=== PATIENT | female | born 1965 | race African-American/Black ===

== ENCOUNTER 2017-09-09 19:10 | Emergency (ER) | payer SELFPAY ==
[2017-09-09] MEDS ORDERED: FENTANYL CITR 100 MCG/2 ML ONE (20:14)
[2017-09-09] MEDS ORDERED: COLCHICINE 0.6 MG TAB ONE ×2 (20:14→21:56)
[2017-09-09] MEDS ORDERED: ONDANSETRON 4 MG/2 ML VIAL ONE (20:14)
[2017-09-09] MEDS ORDERED: NA CHLORIDE 0.9% 1,000 ML ONE (20:14)
[2017-09-09 20:24] LABS: Protime INR 1.1
[2017-09-09 20:38] LABS: Absolute Monocytes 0.5 K/uL (0.1-1.3); Absolute Neutrophil 9.7 K/uL (1.8-8.0); Basophils % 0.6 % (0-1.3); Eosinophils % 0.9 % (0-4.4); Hematocrit 35.4 % (36.0-45.0); Lymphocytes % 22.6 % (15.3-44.8); MCH 29.9 pg (27.0-35.0); MCV 89.5 fL (80-100); MPV 9.6 fL (7.6-11.3); Monocytes % 3.7 % (3.3-12.3); RBC Red Blood Cell Count 3.96 M/uL (3.86-4.86)
[2017-09-09 20:51] LABS: Albumin 4.1 g/dL (3.2-5.5); Bilirubin Direct 0.1 mg/dL (0-0.2); Bilirubin Total 0.3 mg/dL (0.3-1.2); Magnesium 1.8 mg/dL (1.8-2.5); Protein, Total 7.2 g/dL (6.0-8.3); Uric Acid 8.2 mg/dL (2.6-8.0)
[2017-09-09 20:56] LABS: CKMB Creatine Kinase MB 0.8 ng/ml (0.3-4.0)
[2017-09-09] MEDS ORDERED: HYDRALAZINE HCL 20 MG/ML VIAL ONE (21:01)
[2017-09-09] MEDS ORDERED: HYDRALAZINE HCL 10 MG TABLET ONE (21:02)
--- NOTE | 2017-09-09 21:17 | EDPHYS ---
Physician Documentation [facility] Name: Ana Davila Age: 52 yrs Sex: Female : 1965 Arrival Date: 09/09/2017 Time: 19:14 Bed 8 Private MD: Thelma Lovelace R ED Physician Doug Kramer HPI: 09/09 19:57 This 52 yrs old Black Female presents to ER via Ambulatory with complaints of Foot ta Pain, Feet Swelling. 19:57 The patient presents with decreased range of motion, pain, swelling, tenderness. The ta complaints affect the left foot. Context: The problem was sustained at an unknown location. Onset: The symptoms/episode began/occurred 60 day(s) ago. Modifying factors: The symptoms are alleviated by elevation of extremity, the symptoms are aggravated by weight bearing, movement, wearing shoes. Associated signs and symptoms: The patient has no apparent associated signs or symptoms. Severity of symptoms: At their worst the symptoms were mild, moderate, in the emergency department the symptoms are unchanged. The patient has not experienced similar symptoms in the past. 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 - Social history:: Smoking status: Patient/guardian denies using tobacco, Patient/guardian denies using alcohol, street drugs. - Ebola Screening: : No symptoms or risks identified at this time. - Family history:: not pertinent. ROS: 19:57 Constitutional: Negative for fever, chills, and weight loss, Eyes: Negative for injury, ta pain, redness, and discharge, ENT: Negative for injury, pain, and discharge, Neck: Negative for injury, pain, and swelling, Cardiovascular: Negative for chest pain, palpitations, and edema, Respiratory: Negative for shortness of breath, cough, wheezing, and pleuritic chest pain, Abdomen/GI: Negative for abdominal pain, nausea, vomiting, diarrhea, and constipation, Back: Negative for injury and pain, : Negative for injury, bleeding, discharge, and swelling, Skin: Negative for injury, rash, and discoloration, Neuro: Negative for headache, weakness, numbness, tingling, and seizure, Psych: Negative for depression, anxiety, suicide ideation, homicidal ideation, and hallucinations, Allergy/Immunology: Negative for hives, rash, and allergies, Endocrine: Negative for neck swelling, polydipsia, polyuria, polyphagia, and marked weight changes, Hematologic/Lymphatic: Negative for swollen nodes, abnormal bleeding, and unusual bruising. 19:57 MS/extremity: Positive for decreased range of motion, pain, swelling, tenderness, of the left foot. Exam: 19:57 Constitutional: This is a well developed, well nourished patient who is awake, alert, ta and in no acute distress. Head/Face: Normocephalic, atraumatic. Eyes: Pupils equal round and reactive to light, extra-ocular motions intact. Lids and lashes normal. Conjunctiva and sclera are non-icteric and not injected. Cornea within normal limits. Periorbital areas with no swelling, redness, or edema. ENT: Nares patent. No nasal discharge, no septal abnormalities noted. Tympanic membranes are normal and external auditory canals are clear. Oropharynx with no redness, swelling, or masses, exudates, or evidence of obstruction, uvula midline. Mucous membranes moist. Neck: Trachea midline, no thyromegaly or masses palpated, and no cervical lymphadenopathy. Supple, full range of motion without nuchal rigidity, or vertebral point tenderness. No Meningismus. Chest/axilla: Normal chest wall appearance and motion. Nontender with no deformity. No lesions are appreciated. Respiratory: Lungs have equal breath sounds bilaterally, clear to auscultation and percussion. No rales, rhonchi or wheezes noted. No increased work of breathing, no retractions or nasal flaring. Abdomen/GI: Soft, non-tender, with normal bowel sounds. No distension or tympany. No guarding or rebound. No evidence of tenderness throughout. Back: No spinal tenderness. No costovertebral tenderness. Full range of motion. 19:57 Cardiovascular: Rate: tachycardic, Rhythm: regular, Heart sounds: normal, Edema: is not appreciated, JVD: is not appreciated. 19:57 Musculoskeletal/extremity: ROM: full active range of motion, full passive range of motion, Pulses: noted to be 4+ in the bilateral radial, brachial, femoral, popliteal, posterior tibial and and dorsalis pedis arteries., Sensation intact. Compartment Syndrome exam of affected extremity: is normal. DVT Exam: negative Homans' sign noted on exam, no appreciated bluish discoloration, no erythema, no increased warmth, pain, swelling, tenderness. Vital Signs: 19:30 BP 212 / 108; Pulse 121; Resp 18 S; Temp 98.8(O); Pulse Ox 99% on R/A; Weight 61.69 kg bb (R); Height 5 ft. 0 in. (152.40 cm) (R); Pain 7/10; 20:08 BP 193 / 97; Pulse 100; Resp 18; Pulse Ox 98% on R/A; tl2 21:03 BP 206 / 109; Pulse 97; Resp 18; Pulse Ox 99% on R/A; tl2 21:48 BP 198 / 95; Pulse 114; Resp 20; Pulse Ox 98% on R/A; rv 22:40 BP 184 / 98; Pulse 96; Resp 18; Pulse Ox 99% on R/A; Pain 2/10; tl2 19:30 Body Mass Index 26.56 (61.69 kg, 152.40 cm) bb MDM: 19:24 Patient medically screened. [facility] 20:01 Data reviewed: vital signs, nurses notes, lab test result(s), EKG, radiologic studies, [facility] plain films, ultrasound. 09/09 19:56 Order name: Basic Metabolic Panel [facility] 09/09 19:56 Order name: BNP; Complete Time: 21:12 [facility] 09/09 19:56 Order name: CBC with Diff; Complete Time: 21:12 [facility] 09/09 19:56 Order name: Ckmb; Complete Time: 21:12 [facility] 09/09 19:56 Order name: CPK; Complete Time: 21:12 [facility] 09/09 19:56 Order name: LFT's; Complete Time: 21:12 [facility] 09/09 19:56 Order name: Magnesium; Complete Time: 21:12 [facility] 09/09 19:56 Order name: PT-INR; Complete Time: 21:12 [facility] 09/09 19:56 Order name: Ptt, Activated; Complete Time: 21:12 [facility] 09/09 19:56 Order name: Troponin (emerg Dept Use Only); Complete Time: 21:12 [facility] 09/09 19:56 Order name: XRAY Chest (1 view) [facility] 09/09 19:56 Order name: Foot Left 3 View XRAY [facility] 09/09 19:56 Order name: Uric Acid; Complete Time: 21:12 [facility] 09/09 19:56 Order name: Basic Metabolic Panel; Complete Time: 21:12 [facility] 09/09 19:56 Order name: EKG; Complete Time: 19:57 [facility] 09/09 19:56 Order name: Cardiac monitoring; Complete Time: 20:07 [facility] 09/09 19:56 Order name: EKG - Nurse/Tech; Complete Time: 20:07 [facility] 09/09 19:56 Order name: IV Saline Lock; Complete Time: 20:07 [facility] 09/09 19:56 Order name: Labs collected and sent; Complete Time: 20:07 [facility] 09/09 19:56 Order name: US Extremity Venous W Compression Yaya [facility] 09/09 19:56 Order name: O2 Per Protocol; Complete Time: 20:08 [facility] 09/09 19:56 Order name: O2 Sat Monitoring; Complete Time: 20:08 [facility] 09/09 19:56 Order name: Urine Dipstick-Ancillary (obtain specimen); Complete Time: 22:22 [facility] Administered Medications: 20:18 Drug: NS 0.9% 1000 ml Route: IV; Rate: 125 ml/hr; Site: right wrist; tl2 22:43 Follow up: IV Status: Completed infusion tl2 20:18 Drug: Colcrys 1.2 mg Route: PO; tl2 22:39 Follow up: Response: No adverse reaction tl2 20:18 Drug: fentaNYL (PF) 25 mcg Route: IVP; Site: right wrist; tl2 21:00 Follow up: Response: No adverse reaction; Pain is decreased tl2 20:18 Drug: Zofran 4 mg Route: IVP; Site: right wrist; tl2 22:39 Follow up: Response: No adverse reaction tl2 21:04 Drug: hydrALAZINE 10 mg Route: IV; Rate: per protocol; Site: right wrist; tl2 22:43 Follow up: IV Status: Completed infusion tl2 21:04 Drug: hydrALAZINE 10 mg Route: PO; tl2 22:39 Follow up: Response: No adverse reaction; Blood pressure is lowered tl2 22:03 Drug: Potassium Effervescent Tablet 50 mEq Route: PO; bp 22:39 Follow up: Response: No adverse reaction tl2 22:03 Drug: Colcrys 0.6 mg Route: PO; bp 22:40 Follow up: Response: No adverse reaction tl2 22:03 Drug: Lopressor (metoprolol TARTRATE) 50 mg Route: PO; bp 22:40 Follow up: Response: No adverse reaction tl2 22:03 Drug: Norvasc 5 mg Route: PO; bp 22:40 Follow up: Response: No adverse reaction tl2 Disposition: 09/09/17 21:16 Discharged to Home. Impression: Gout, Hypokalemia, Essential (primary) hypertension. - Condition is Fair. - Discharge Instructions: Potassium Content of Foods, Gout, Hypertension, Hypertension, [id number], Gout, Xqca-[id number]-Pwwp, How to Take Your Blood Pressure, Xlid-yx-Dodn, Managing Your High Blood Pressure. - Prescriptions for indomethacin 25 mg Oral capsule - take 1 capsule by ORAL route 4 times per day for 14 days; 20 capsule. Norvasc 10 mg Oral Tablet - take 1 tablet by ORAL route once daily; 30 tablet. Atenolol 50 mg Oral Tablet - take 1 tablet by ORAL route once daily; 30 tablet. Hydralazine 10 mg Oral Tablet - take 1 tablet by ORAL route 3 times per day with food; 30 tablet. - Medication Reconciliation Form, Thank You Letter, Antibiotic Education, Prescription Opioid Use form. - Follow up: Thelma Lovelace MD; When: 2 - 3 days; Reason: Recheck today's complaints, Continuance of care, Re-evaluation by your physician. Follow up: Chinmay Pride MD; When: 2 - 3 days; Reason: Recheck today's complaints, Re-evaluation by your physician. - Problem is new. - Symptoms have improved. Signatures: Dispatcher [employer] Doug Samano MD MD cha Ballard, Brenda, RN RN Lori Urbano RN RN tl2 Almas Araujo RN RN bp Corrections: (The following items were deleted from the chart) 22:43 21:16 09/09/2017 21:16 Discharged to Home. Impression: Gout; Hypokalemia; Essential tl2 (primary) hypertension. Condition is Fair. Forms are Medication Reconciliation Form, Thank You Letter, Antibiotic Education, Prescription Opioid Use. Follow up: Thelma Lovelace; When: 2 - 3 days; Reason: Recheck today's complaints, Continuance of care, Re-evaluation by your physician. Follow up: Chinmay Pride; When: 2 - 3 days; Reason: Recheck today's complaints, Re-evaluation by your physician. Problem is new. Symptoms have improved. ta
--- NOTE | 2017-09-09 21:17 | ER ---
Nurse's Notes [facility] Name: Ana Davila Age: 52 yrs Sex: Female : 1965 Arrival Date: 09/09/2017 Time: 19:14 Bed 8 Private MD: Thelma Lovelace R Diagnosis: Gout;Hypokalemia;Essential (primary) hypertension Presentation: 09/09 19:27 Presenting complaint: Patient states: she has had an episode approx 2 months ago of her bb left foot swelling which lasted approx 3 to 4 days then it went away but now it has started swelling again since and it is painful. Pt was concerned as her 28 year old daughter from a blood clot. Transition of care: patient was not received from another setting of care. Onset of symptoms was September 07, 2017. Risk Assessment: Do you want to hurt yourself or someone else? Patient reports no desire to harm self or others. Initial Sepsis Screen: Does the patient meet any 2 criteria? No. Patient's initial sepsis screen is negative. Does the patient have a suspected source of infection? No. Patient's initial sepsis screen is negative. Care prior to arrival: None. 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 - Social history:: Smoking status: Patient/guardian denies using tobacco, Patient/guardian denies using alcohol, street drugs. - Ebola Screening: : No symptoms or risks identified at this time. - Family history:: not pertinent. Screenin:45 Abuse screen: Denies threats or abuse. Nutritional screening: No deficits noted. tl2 Tuberculosis screening: No symptoms or risk factors identified. Fall Risk None identified. Assessment: 19:45 General: Appears in no apparent distress. uncomfortable, Behavior is calm, cooperative, tl2 appropriate for age. Pain: Complains of pain in left foot Pain does not radiate. Neuro: Level of Consciousness is awake, alert, obeys commands, Oriented to person, place, time, situation. Cardiovascular: Denies chest pain. Cardiovascular: Pulses are palpable in right dorsalis pedis artery and left dorsalis pedis artery. Respiratory: Airway is patent Respiratory effort is even, unlabored, Respiratory pattern is regular, symmetrical. GI: No signs and/or symptoms were reported involving the gastrointestinal system. : No signs and/or symptoms were reported regarding the genitourinary system. Derm: Skin is pink, warm \T\ dry. Musculoskeletal: Circulation, motion, and sensation intact. Swelling present in dorsum of left foot. 21:03 Reassessment: Patient appears in no apparent distress at this time. Patient and/or tl2 family updated on plan of care and expected duration. Pain level reassessed. Patient is alert, oriented x 3, equal unlabored respirations, skin warm/dry/pink. Pt states pain medication has helped. BP continues to trend up, notified, new order see MAR Patient states feeling better. 22:22 Reassessment: will continue to monitor BP and pulse before discharge. tl2 Vital Signs: 19:30 BP 212 / 108; Pulse 121; Resp 18 S; Temp 98.8(O); Pulse Ox 99% on R/A; Weight 61.69 kg bb (R); Height 5 ft. 0 in. (152.40 cm) (R); Pain 7/10; 20:08 BP 193 / 97; Pulse 100; Resp 18; Pulse Ox 98% on R/A; tl2 21:03 BP 206 / 109; Pulse 97; Resp 18; Pulse Ox 99% on R/A; tl2 21:48 BP 198 / 95; Pulse 114; Resp 20; Pulse Ox 98% on R/A; rv 22:40 BP 184 / 98; Pulse 96; Resp 18; Pulse Ox 99% on R/A; Pain 2/10; tl2 19:30 Body Mass Index 26.56 (61.69 kg, 152.40 cm) ED Course: 19:14 Patient arrived in ED. es 19:14 Thelma Lovelace MD is Private Physician. es 19:23 Doug Kramer MD is Attending Physician. ta 19:29 Triage completed. bb 19:30 Arm band placed on left wrist. Patient placed in an exam room, on a stretcher, on pulse bb oximetry. 19:45 Patient has correct armband on for positive identification. Bed in low position. Call tl2 light in reach. Side rails up X 1. 20:07 Lori Burris, RN is Primary Nurse. tl2 20:08 Inserted saline lock: 22 gauge in right wrist, using aseptic technique. Blood collected.tl2 20:39 Ultrasound completed. Patient tolerated well. sg3 20:54 US Extremity Venous W Compression Yaya In Process Unspecified. EDMS 21:08 X-ray completed. Portable x-ray completed in exam room. Patient tolerated procedure la2 well. 21:12 XRAY Chest (1 view) In Process Unspecified. EDMS 21:12 Foot Left 3 View XRAY In Process Unspecified. EDMS 21:15 Thelma Lovelace MD is Referral Physician. ta 21:15 Chinmay Pride MD is Referral Physician. ta 22:40 No provider procedures requiring assistance completed. IV discontinued, intact, tl2 bleeding controlled, No redness/swelling at site. Pressure dressing applied. Administered Medications: 20:18 Drug: NS 0.9% 1000 ml Route: IV; Rate: 125 ml/hr; Site: right wrist; tl2 22:43 Follow up: IV Status: Completed infusion tl2 20:18 Drug: Colcrys 1.2 mg Route: PO; tl2 22:39 Follow up: Response: No adverse reaction tl2 20:18 Drug: fentaNYL (PF) 25 mcg Route: IVP; Site: right wrist; tl2 21:00 Follow up: Response: No adverse reaction; Pain is decreased tl2 20:18 Drug: Zofran 4 mg Route: IVP; Site: right wrist; tl2 22:39 Follow up: Response: No adverse reaction tl2 21:04 Drug: hydrALAZINE 10 mg Route: IV; Rate: per protocol; Site: right wrist; tl2 22:43 Follow up: IV Status: Completed infusion tl2 21:04 Drug: hydrALAZINE 10 mg Route: PO; tl2 22:39 Follow up: Response: No adverse reaction; Blood pressure is lowered tl2 22:03 Drug: Potassium Effervescent Tablet 50 mEq Route: PO; bp 22:39 Follow up: Response: No adverse reaction tl2 22:03 Drug: Colcrys 0.6 mg Route: PO; bp 22:40 Follow up: Response: No adverse reaction tl2 22:03 Drug: Lopressor (metoprolol TARTRATE) 50 mg Route: PO; bp 22:40 Follow up: Response: No adverse reaction tl2 22:03 Drug: Norvasc 5 mg Route: PO; bp 22:40 Follow up: Response: No adverse reaction tl2 Outcome: 21:16 Discharge ordered by . ta 22:40 Discharged to home ambulatory, with family. tl2 22:40 Condition: stable 22:40 Discharge instructions given to patient, Instructed on discharge instructions, follow up and referral plans. medication usage, Demonstrated understanding of instructions, follow-up care, medications, Prescriptions given X 4. 22:43 Patient left the ED. tl2 Signatures: Dispatcher [employer] Doug Samano MD MD cha Salyer, Edna es Ballard, Brenda RN RN Lori Urbano RN RN tl2 Zhane Crespo la2 Almas Araujo RN RN Carla Chavez sg3 Prasad Alcala RN RN rv Corrections: (The following items were deleted from the chart) 19:32 19:27 Acuity: BRENNAN 3 mono villareal
--- NOTE | 2017-09-09 21:23 | RAD REPORT ---
EXAM DESCRIPTION: VASExtrem Venous W Compress Bil09/09/2017 8:54 pm CLINICAL HISTORY: Bilateral leg swelling COMPARISON: none FINDINGS: The common femoral, superficial femoral, popliteal and posterior tibial veins bilaterally are compressible and demonstrate augmentation. Doppler demonstrates good flow. IMPRESSION: No evidence of deep venous thrombosis involving either lower extremity.
--- NOTE | 2017-09-09 21:24 | RAD REPORT ---
EXAM DESCRIPTION: Anna Single View09/09/2017 9:11 pm CLINICAL HISTORY: sob COMPARISON: none FINDINGS: The lungs appear clear of acute infiltrate. The heart is normal size IMPRESSION: No acute abnormalities displayed
--- NOTE | 2017-09-09 21:26 | RAD REPORT ---
EXAM DESCRIPTION: RAD - Foot Left 3 View - 09/09/2017 9:11 pm CLINICAL HISTORY: Left Foot pain FINDINGS: No fracture or dislocation is seen. A large spur extends off the posterior calcaneus
[2017-09-09] MEDS ORDERED: AMLODIPINE 5 MG TAB ONE (21:55)
[2017-09-09] MEDS ORDERED: METOPROLOL TAR 50 MG TAB ONE (21:55)
[2017-09-09] MEDS ORDERED: POTASSIUM 25 MEQ EFFERV TAB ONE (21:56)
[2017-09-09] MEDS ORDERED: KETOROLAC 30 MG/ML INJ ONE (22:35)
--- NOTE | 2017-09-10 06:40 | EKG ---
Test Date: 2017-09-09 Test Time: 20:05:12 Jail Officer: MEASUREMENT RESULTS: Intervals: Rate: 107 SC: 136 QRSD: 68 QT: 360 QTc: 480 [place]: P: 49 SC: 136 QRS: 11 T: 102 INTERPRETIVE STATEMENTS: Sinus tachycardia Nonspecific T wave abnormality Abnormal ECG No previous ECG available for comparison Electronically Signed On 09-10-17 06:39:32 CDT by Yann Chavarria
== END 2017-09-09 22:43 | disposition home or self-care (01) ==
LOC: ER 19:10
DX: M10.9 Gout, unspecified (principal); E87.6 Hypokalemia; I10 Essential (primary) hypertension
CPT/HCPCS: 36415; 71045; 80048; 80076; 82550; 82553; 83735; 83880; 84484; 84550; 85025; 85610; 85730; 93005; 93970; 96361; 96365; 96366; 96375; 99284; J0360; J2405; J3010; J7030

== ENCOUNTER 2017-12-09 22:48 | Emergency (ER) | payer SELFPAY ==
[2017-12-10] MEDS ORDERED: HYDROCODONE/APAP 10/325 TAB ONE (00:06)
--- NOTE | 2017-12-10 01:00 | EDPHYS ---
Physician Documentation [facility] Name: Ana Davila Age: 52 yrs Sex: Female : 1965 Arrival Date: 12/09/2017 Time: 22:49 Bed 6 Private MD: Thelma Lovelace R ED Physician Alexey Macias HPI: 12/10 01:00 This 52 yrs old Black Female presents to ER via Ambulatory with complaints of Right Arm pm1 Pain. 01:00 The patient or guardian complains of pain. The complaints affect the right elbow. pm1 Context: The problem was sustained outdoors, resulted from slipped on water getting out of car and landed on right elbow. Onset: The symptoms/episode began/occurred 2 day(s) ago. Treatment prior to arrival includes: no previous treatment. Modifying factors: The symptoms are alleviated by remaining still, the symptoms are aggravated by bending arm. Associated signs and symptoms: Pertinent negatives: deformity, numbness, tingling. Severity of symptoms: in the emergency department the symptoms are unchanged. The patient has not experienced similar symptoms in the past. The patient has not recently seen a physician. No head injury, headache, neck pain, LOC. 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 - Social history:: Smoking status: Patient/guardian denies using tobacco. - Ebola Screening: : No symptoms or risks identified at this time. ROS: 12/10 01:00 Constitutional: Negative for fever, chills, and weight loss, Eyes: Negative for injury, pm1 pain, redness, and discharge, ENT: Negative for injury, pain, and discharge, Neck: Negative for injury, pain, and swelling, Cardiovascular: Negative for chest pain, palpitations, and edema, Respiratory: Negative for shortness of breath, cough, wheezing, and pleuritic chest pain, Abdomen/GI: Negative for abdominal pain, nausea, vomiting, diarrhea, and constipation, Back: Negative for injury and pain. Skin: Negative for injury, rash, and discoloration, Neuro: Negative for headache, weakness, numbness, tingling, and seizure. MS/extremity: Positive for pain, of the right elbow. Exam: 01:00 Constitutional: This is a well developed, well nourished patient who is awake, alert, pm1 and in no acute distress. Head/Face: Normocephalic, atraumatic. Eyes: Pupils equal round and reactive to light, extra-ocular motions intact. Lids and lashes normal. Conjunctiva and sclera are non-icteric and not injected. Cornea within normal limits. Periorbital areas with no swelling, redness, or edema. ENT: Nares patent. No nasal discharge, no septal abnormalities noted. Tympanic membranes are normal and external auditory canals are clear. Oropharynx with no redness, swelling, or masses, exudates, or evidence of obstruction, uvula midline. Mucous membranes moist. Neck: Trachea midline, no thyromegaly or masses palpated, and no cervical lymphadenopathy. Supple, full range of motion without nuchal rigidity, or vertebral point tenderness. No Meningismus. Chest/axilla: Normal chest wall appearance and motion. Nontender with no deformity. No lesions are appreciated. Cardiovascular: Regular rate and rhythm with a normal S1 and S2. No gallops, murmurs, or rubs. Normal PMI, no JVD. No pulse deficits. Respiratory: Lungs have equal breath sounds bilaterally, clear to auscultation and percussion. No rales, rhonchi or wheezes noted. No increased work of breathing, no retractions or nasal flaring. Abdomen/GI: Soft, non-tender, with normal bowel sounds. No distension or tympany. No guarding or rebound. No evidence of tenderness throughout. Back: No spinal tenderness. No costovertebral tenderness. Full range of motion. Skin: Warm, dry with normal turgor. Normal color with no rashes, no lesions, and no evidence of cellulitis. 01:00 Musculoskeletal/extremity: Extremities: grossly normal except: noted in the right elbow: pain, tenderness, Patient able to pronate and supinate right hand. Pain with flexion at elbow. 01:00 Neuro: Orientation: is normal, Motor: moves all fours, Sensation: is normal, no obvious gross deficits, Gait: is steady, at a normal pace, without difficulty. Vital Signs: 12/09 23:16 BP 218 / 116; Pulse 113; Resp 18; Temp 98.6; Pulse Ox 99% on R/A; Weight 63.5 kg; aa1 Height 5 ft. 0 in. (152.40 cm); Pain 8/10; 12/10 00:04 BP 191 / 108; Pulse 94; Resp 18; Pulse Ox 98% on R/A; aa1 00:49 BP 200 / 100; Pulse 96; Resp 18; Pulse Ox 97% on R/A; aa1 01:33 BP 190 / 103; Pulse 93; Resp 16; Pulse Ox 98% on R/A; Pain 5/10; aa1 12/09 23:16 Body Mass Index 27.34 (63.50 kg, 152.40 cm) aa1 Procedures: 01:29 Splinting: Splint applied to right elbow using Orthoglass splint, applied by tech. pm1 Examined by me, post splint application: neurovascular intact, 2+ distal pulses palpable, brisk capillary refill noted, Patient tolerated well. MDM: 12/09 23:19 Patient medically screened. pm1 12/10 00:49 Data reviewed: vital signs. Data interpreted: Pulse oximetry: on room air is 97 %. pm1 Interpretation: normal. Counseling: I had a detailed discussion with the patient and/or guardian regarding: the historical points, exam findings, and any diagnostic results supporting the discharge/admit diagnosis, radiology results, the need for outpatient follow up, for definitive care, a orthopedic surgeon, to return to the emergency department if symptoms worsen or persist or if there are any questions or concerns that arise at home. 12/09 23:53 Order name: Elbow Right 3 View XRAY; Complete Time: 20:58 pm1 12/10 01:02 Order name: Sling; Complete Time: 01:33 pm1 12/10 01:02 Order name: Splint - Elbow - Posterior; Complete Time: 01:33 pm1 Administered Medications: 00:02 Drug: [place] 10 mg-325 mg 1 tabs Route: PO; aa1 01:33 Follow up: Response: No adverse reaction; Pain is decreased aa1 Disposition: 12/10/17 01:00 Discharged to Home. Impression: Fracture right ulna . - Condition is Stable. - Discharge Instructions: Cast or Splint Care, Adult, Ulnar Fracture, How to Use a Sling. - Prescriptions for Tylenol- Codeine #3 300-30 mg Oral Tablet - take 2 tablets by ORAL route every 6 hours As needed; 20 tablet. - Medication Reconciliation Form, Thank You Letter, Prescription Opioid Use form. - Follow up: Emergency Department; When: As needed; Reason: Worsening of condition. Follow up: Jean-Paul Crews MD; When: 2 - 3 days; Reason: Recheck today's complaints, Continuance of care, Re-evaluation by your physician. - Problem is new. - Symptoms have improved. Addendum: 12/11/2017 03:03 Co-signature as Attending Physician, Alexey Macias MD. g s Signatures: Dispatcher [employer] EDMS Soheila Vital RN RN aa1 Sebastian Hart, HEALTH INFORMATION TECHNICIAN HEALTH INFORMATION TECHNICIAN pm1 Alexey Macias MD MD Corrections: (The following items were deleted from the chart) 12/10 01:37 01:00 12/10/2017 01:00 Discharged to Home. Impression: Fracture right ulna . Condition aa1 is Stable. Forms are Medication Reconciliation Form, Thank You Letter, Antibiotic Education, Prescription Opioid Use. Follow up: Emergency Department; When: As needed; Reason: Worsening of condition. Follow up: Jean-Paul Crews; When: 2 - 3 days; Reason: Recheck today's complaints, Continuance of care, Re-evaluation by your physician. Problem is new. Symptoms have improved. pm1
--- NOTE | 2017-12-10 01:00 | ER ---
Nurse's Notes [facility] Name: Ana Davila Age: 52 yrs Sex: Female : 1965 Arrival Date: 12/09/2017 Time: 22:49 Bed 6 Private MD: Thelma Lovelace R Diagnosis: Fracture right ulna Presentation: 12/09 23:07 Presenting complaint: Patient states: she slipped in a puddle of water last night and aa1 landed on her R elbow. Small laceration noted with scab present. Reports pain with ROM of R elbow. Transition of care: patient was not received from another setting of care. Onset of symptoms was December 08, 2017. Risk Assessment: Do you want to hurt yourself or someone else? Patient reports no desire to harm self or others. Initial Sepsis Screen: Does the patient meet any 2 criteria? No. Patient's initial sepsis screen is negative. Does the patient have a suspected source of infection? No. Patient's initial sepsis screen is negative. Care prior to arrival: None. 23:07 Method Of Arrival: Ambulatory aa1 23:07 Acuity: BRENNAN [address]: 23:16 LMP N/A - Hysterectomy aa1 Historical: - Allergies: 23:16 No Known Allergies; aa1 - Home Meds: 23:16 amlodipine 5 mg tab 1 tab once daily [Active]; atenolol 50 mg Oral tab 1 tab once daily aa1 [Active]; hydrochlorothiazide 25 mg Oral tab 1 tab once daily [Active]; - PMHx: 23:16 Hypertension; aa1 - PSHx: 23:16 Hysterectomy; Appendectomy; aa1 - Immunization history:: Last tetanus immunization: unknown. - Social history:: Smoking status: Patient/guardian denies using tobacco. - Ebola Screening: : No symptoms or risks identified at this time. Screenin:17 Abuse screen: Denies threats or abuse. Denies injuries from another. Nutritional aa1 screening: No deficits noted. Tuberculosis screening: No symptoms or risk factors identified. Fall Risk None identified. Assessment: 23:17 General: Appears in no apparent distress. comfortable, Behavior is calm, cooperative, aa1 appropriate for age. Pain: Complains of pain in right antecubital area. Neuro: Level of Consciousness is awake, alert, obeys commands, Oriented to person, place, time, situation. Respiratory: Airway is patent Respiratory effort is even, unlabored, Respiratory pattern is regular, symmetrical. GI: No signs and/or symptoms were reported involving the gastrointestinal system. : No signs and/or symptoms were reported regarding the genitourinary system. EENT: No signs and/or symptoms were reported regarding the EENT system. Derm: Skin is intact, is healthy with good turgor, Skin is pink, warm \T\ dry. Musculoskeletal: Circulation, motion, and sensation intact. Capillary refill < 3 seconds, Range of motion: limited in right elbow. Injury Description: Abrasion sustained to right elbow is scabbed, was sustained 12-24 hours ago. 12/10 00:05 Reassessment: Patient appears in no apparent distress at this time. Patient and/or aa1 family updated on plan of care and expected duration. Pain level reassessed. Patient is alert, oriented x 3, equal unlabored respirations, skin warm/dry/pink. Awaiting x-ray. 00:48 Reassessment: Patient appears in no apparent distress at this time. Patient and/or aa1 family updated on plan of care and expected duration. Pain level reassessed. Patient is alert, oriented x 3, equal unlabored respirations, skin warm/dry/pink. Awaiting x-ray results. 01:33 Reassessment: Patient appears in no apparent distress at this time. Patient is alert, aa1 oriented x 3, equal unlabored respirations, skin warm/dry/pink. Discussed d/c \T\ f/u instructions with pt \T\ daughter; denies questions or concerns at this time Patient states feeling better. Vital Signs: 12/09 23:16 BP 218 / 116; Pulse 113; Resp 18; Temp 98.6; Pulse Ox 99% on R/A; Weight 63.5 kg; aa1 Height 5 ft. 0 in. (152.40 cm); Pain 8/10; 12/10 00:04 BP 191 / 108; Pulse 94; Resp 18; Pulse Ox 98% on R/A; aa1 00:49 BP 200 / 100; Pulse 96; Resp 18; Pulse Ox 97% on R/A; aa1 01:33 BP 190 / 103; Pulse 93; Resp 16; Pulse Ox 98% on R/A; Pain 5/10; aa1 09/15 23:16 Body Mass Index 27.34 (63.50 kg, 152.40 cm) aa1 ED Course: 12/09 22:49 Patient arrived in ED. ds1 22:52 Thelma Lovelace MD is Private Physician. ds1 23:13 Triage completed. aa1 23:16 Arm band placed on right wrist. Patient placed in an exam room, on a stretcher. aa1 23:17 Patient has correct armband on for positive identification. Bed in low position. Call aa1 light in reach. Pulse ox on. NIBP on. 23:19 Sebastian Hart NP is PHCP. pm1 23:19 Alexey Macias MD is Attending Physician. pm1 09 00:01 Soheila Vital RN is Primary Nurse. aa1 00:30 Elbow Right 3 View XRAY In Process Unspecified. EDMS 00:46 X-ray completed. Patient tolerated procedure well. mh1 00:53 Jean-Paul Crews MD is Referral Physician. pm1 01:36 No provider procedures requiring assistance completed. Patient did not have IV access aa1 during this emergency room visit. Administered Medications: 00:02 Drug: [place] 10 mg-325 mg 1 tabs Route: PO; aa1 01:33 Follow up: Response: No adverse reaction; Pain is decreased aa1 Outcome: 01:00 Discharge ordered by . pm1 01:36 Discharged to home ambulatory, with family. aa1 01:36 Condition: good 01:36 Discharge instructions given to patient, family, Instructed on discharge instructions, follow up and referral plans. medication usage, Demonstrated understanding of instructions, follow-up care, medications, splint care, Prescriptions given X 1. 01:37 Patient left the ED. aa1 Signatures: Dispatcher [employer] EDAR Soheila Vital RN RN aa1 Samreen Dubois 1 Chanelle Cotton ds1 Sebastian Hart NP MACHINE I TRIMMER pm1
--- NOTE | 2017-12-10 08:25 | RAD REPORT ---
EXAM DESCRIPTION: RAD - Elbow Right 3 View - 12/10/2017 12:30 am CLINICAL HISTORY: Slip and fall, trauma to right elbow, laceration COMPARISON: None. FINDINGS: No fracture is identified and no elevated posterior fat pad. There is no dislocation or pe riosteal reaction noted. No foreign body is seen. There is soft tissue swelling posterior to the elbo w. . No other significant finding. IMPRESSION: No fracture or acute finding seen. Posterior soft tissue swelling is present. Repeat plain films in 7 days or MR imaging could be utilized if the patient has continued symptoms co ncerning for occult bony injury.
== END 2017-12-10 01:37 | disposition home or self-care (01) ==
LOC: ER 22:48
PROC: 2W38X1Z Immobilization of Right Upper Extremity using Splint (ICD-10-PCS; principal; 2017-12-10)
DX: S52.201A Unspecified fracture of shaft of right ulna, initial encounter for closed fracture (principal); W01.0XXA Fall on same level from slipping, tripping and stumbling without subsequent striking against object, initial encounter; Y93.89 Activity, other specified; Y92.9 Unspecified place or not applicable; I10 Essential (primary) hypertension
CPT/HCPCS: 99284

== ENCOUNTER 2018-10-21 23:32 | Emergency (ER) | payer SELFPAY ==
--- NOTE | 2018-10-22 00:11 | ER ---
Nurse's Notes [facility] Name: Ana Davila Age: 53 yrs Sex: Female : 1965 Arrival Date: 10/21/2018 Time: 23:37 Bed 13 Private MD: Thelma Lovelace R Diagnosis: Dermatitis, unspecified Presentation: 10/21 23:44 Presenting complaint: Patient states: I have a rash on both my arms, lower back and jb4 lower abdomen, and inner thighs. I think its my eczema but my cream has not worked at all. 23:44 Transition of care: patient was not received from another setting of care. Onset: The jb4 symptoms/episode began/occurred 1 week(s) ago. Anaphylaxis evaluation, no signs or symptoms of anaphylaxis were noted. Onset of symptoms was October 14, 2018. Risk Assessment: Do you want to hurt yourself or someone else? Patient reports no desire to harm self or others. Initial Sepsis Screen: Does the patient meet any 2 criteria? No. Patient's initial sepsis screen is negative. Does the patient have a suspected source of infection? No. Patient's initial sepsis screen is negative. Care prior to arrival: None. 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 - Social history:: Smoking status: Patient/guardian denies using tobacco, Patient/guardian denies using alcohol. - Ebola Screening: : No symptoms or risks identified at this time. Screenin:44 Abuse screen: Denies threats or abuse. Nutritional screening: No deficits noted. jb4 Tuberculosis screening: No symptoms or risk factors identified. Fall Risk None identified. Assessment: 23:44 General: Appears in no apparent distress. comfortable, Behavior is calm, cooperative, jb4 appropriate for age. Pain: Denies pain. Neuro: Level of Consciousness is awake, alert, obeys commands, Oriented to person, place, time, situation. Cardiovascular: Patient's skin is warm and dry. Respiratory: Airway is patent Respiratory effort is even, unlabored, Respiratory pattern is regular, symmetrical, Breath sounds are clear bilaterally. GI: No signs and/or symptoms were reported involving the gastrointestinal system. : No signs and/or symptoms were reported regarding the genitourinary system. EENT: No signs and/or symptoms were reported regarding the EENT system. Derm: Rash noted that is itchy, red. Musculoskeletal: Circulation, motion, and sensation intact. Range of motion: intact in all extremities. 10/22 00:22 Reassessment: Patient appears in no apparent distress at this time. Patient and/or jb4 family updated on plan of care and expected duration. Pain level reassessed. Patient is alert, oriented x 3, equal unlabored respirations, skin warm/dry/pink. Vital Signs: 10/21 23:44 BP 207 / 109; Pulse 80; Resp 18; Temp 98.3(O); Pulse Ox 98% on R/A; Weight 64.41 kg jb4 (R); Height 5 ft. 1 in. (154.94 cm); Pain 0/10; 10/22 00:15 BP 161 / 82; Pulse 72; Resp 18; Pulse Ox 100% on R/A; jb4 10/21 23:44 Body Mass Index 26.83 (64.41 kg, 154.94 cm) jb4 ED Course: 10/21 23:37 Patient arrived in ED. es 23:37 Thelma Lovelace MD is Private Physician. es 23:41 Rich Thomas, RN is Primary Nurse. jb4 23:44 Arm band placed on left wrist. jb4 23:44 Patient has correct armband on for positive identification. Bed in low position. Call jb4 light in reach. Side rails up X 1. Pulse ox on. NIBP on. 23:51 Triage completed. jb4 10/22 00:04 Lev Cadet MD is Attending Physician. tw4 00:08 Thelma Lovelace MD is Referral Physician. tw4 00:23 No provider procedures requiring assistance completed. Patient did not have IV access jb4 during this emergency room visit. Administered Medications: 00:20 Drug: predniSONE 40 mg Route: PO; jb4 00:27 Follow up: Response: Medication administered at discharge. jb4 Outcome: 00:10 Discharge ordered by . tw4 00:23 Discharged to home ambulatory. jb4 : Condition: stable 00:23 Discharge instructions given to patient, Instructed on discharge instructions, follow up and referral plans. medication usage, Demonstrated understanding of instructions, follow-up care, medications, Prescriptions given X 2. 00:27 Patient left the ED. jb4 Signatures: Annabel Gar James, RN RN jb4 Lev Cadet MD MD tw4
[2018-10-22] MEDS ORDERED: predniSONE 20 MG TAB ONE (00:35)
--- NOTE | 2018-10-23 03:08 | EDPHYS ---
Physician Documentation [facility] Name: Ana Davila Age: 53 yrs Sex: Female : 1965 Arrival Date: 10/21/2018 Time: 23:37 Bed 13 Private MD: Thelma Lovelace R ED Physician Lev Cadet HPI: 10/22 05:37 This 53 yrs old Black Female presents to ER via Ambulatory with complaints of Rash, tw4 Itching. 05:37 The patient's rash thought to be caused by Eczema. The rash is located on the body tw4 diffusely. Onset: The symptoms/episode began/occurred today. Severity of symptoms: At their worst the symptoms were moderate in the emergency department the symptoms are unchanged. The patient has not experienced similar symptoms in the past. 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 - Social history:: Smoking status: Patient/guardian denies using tobacco, Patient/guardian denies using alcohol. - Ebola Screening: : No symptoms or risks identified at this time. ROS: 10/22 05:37 Constitutional: Negative for fever, chills, and weight loss, Cardiovascular: Negative tw4 for chest pain, palpitations, and edema, Respiratory: Negative for shortness of breath, cough, wheezing, and pleuritic chest pain, Abdomen/GI: Negative for abdominal pain, nausea, vomiting, diarrhea, and constipation, Back: Negative for injury and pain. Neuro: Negative for headache, weakness, numbness, tingling, and seizure. Skin: Positive for rash. Exam: 05:37 Constitutional: This is a well developed, well nourished patient who is awake, alert, tw4 and in no acute distress. Head/Face: Normocephalic, atraumatic. Chest/axilla: Normal chest wall appearance and motion. Nontender with no deformity. No lesions are appreciated. Cardiovascular: Regular rate and rhythm with a normal S1 and S2. No gallops, murmurs, or rubs. Normal PMI, no JVD. No pulse deficits. Respiratory: Lungs have equal breath sounds bilaterally, clear to auscultation and percussion. No rales, rhonchi or wheezes noted. No increased work of breathing, no retractions or nasal flaring. Abdomen/GI: Soft, non-tender, with normal bowel sounds. No distension or tympany. No guarding or rebound. No evidence of tenderness throughout. Back: No spinal tenderness. No costovertebral tenderness. Full range of motion. MS/ Extremity: Pulses equal, no cyanosis. Neurovascular intact. Full, normal range of motion. Neuro: Awake and alert, GCS 15, oriented to person, place, time, and situation. Cranial nerves II-XII grossly intact. Motor strength 5/5 in all extremities. Sensory grossly intact. Cerebellar exam normal. Normal gait. 05:37 Skin: Vital Signs: 10/21 23:44 BP 207 / 109; Pulse 80; Resp 18; Temp 98.3(O); Pulse Ox 98% on R/A; Weight 64.41 kg jb4 (R); Height 5 ft. 1 in. (154.94 cm); Pain 0/10; 10/22 00:15 BP 161 / 82; Pulse 72; Resp 18; Pulse Ox 100% on R/A; jb4 10/21 23:44 Body Mass Index 26.83 (64.41 kg, 154.94 cm) jb4 MDM: 00:05 Patient medically screened. tw4 Administered Medications: 00:20 Drug: predniSONE 40 mg Route: PO; jb4 00:27 Follow up: Response: Medication administered at discharge. jb4 Disposition: 10/22/18 00:10 Discharged to Home. Impression: Dermatitis, unspecified. - Condition is Stable. - Discharge Instructions: Eczema. - Prescriptions for Elocon 0.1 % Topical cream - apply 1 application by TOPICAL route once daily; 1 Container. Medrol (Pérez) 4 mg Oral Tablets, Dose Pack - take 1 tablet by ORAL route as directed - follow package instructions; 1 packet. - Medication Reconciliation Form, Thank You Letter, Antibiotic Education, Prescription Opioid Use form. - Follow up: Thelma Lovelace MD; When: Upon discharge from the Emergency Department; Reason: If symptoms return, Recheck today's complaints, Continuance of care. - Problem is new. - Symptoms have improved. Signatures: Rich Thomas RN RN jb4 Lev Cadet MD MD tw4 Corrections: (The following items were deleted from the chart) 00:27 00:10 10/22/2018 00:10 Discharged to Home. Impression: Dermatitis, unspecified. jb4 Condition is Stable. Forms are Medication Reconciliation Form, Thank You Letter, Antibiotic Education, Prescription Opioid Use. Follow up: Thelma Lovelace; When: Upon discharge from the Emergency Department; Reason: If symptoms return, Recheck today's complaints, Continuance of care. Problem is new. Symptoms have improved. tw4
== END 2018-10-22 00:27 | disposition home or self-care (01) ==
LOC: ER 23:32
DX: L30.9 Dermatitis, unspecified (principal); I10 Essential (primary) hypertension
CPT/HCPCS: 99283; J7512